=== PATIENT | female | born 1990 | race Caucasian/White ===

== ENCOUNTER 2019-02-23 00:55 | Inpatient (IN) | payer OTHER ==
[2019-02-23] MEDS ORDERED: ELECTROLYTE-148 SOLN 500 ML IV ONE (01:40)
[2019-02-23 02:20] LABS: BASO % 0.5 % (0-2.0); EOS % 0.2 % (0-4.5); HEMATOCRIT 37.5 % (32.4-45.2); HEMOGLOBIN 12.4 GM/dL (10.7-15.3); LYMPH % 7.3 % (8-40); MCH 29.3 pg (25.7-33.7); MCHC 33.1 g/dl (32.0-36.0); MEAN CELL VOLUME 88.4 fl (80-96); MEAN PLT VOLUME 9.2 fl (7.5-11.1); MONO % 6.8 % (3.8-10.2); NEUT % 85.2 % (42.8-82.8); PLATELET COUNT 168 K/MM3 (134-434); RBC 4.24 M/mm3 (3.60-5.2); RDW 14.9 % (11.6-15.6); WHITE BLOOD COUNT 11.3 K/mm3 (4.0-10.0)
[2019-02-23] MEDS ORDERED: AMPICILLIN - 2 GM in SODIUM CHLORIDE 100 ML IVPB ONE (02:30)
[2019-02-23] MEDS ORDERED: AMPICILLIN SODIUM 2 GM VIAL ONE (02:35)
[2019-02-23 02:39] LABS: INR 0.92 (0.83-1.09); PROTHROMBIN TIME (PATIENT) 10.8 SEC (9.7-13.0)
[2019-02-23 02:42] LABS: ACTIVATED PTT 25.9 SECONDS (25.2-36.5)
[2019-02-23 02:53] LABS: BLOOD UREA NITROGEN 12.4 mg/dL (7-18); CALCIUM 8.5 mg/dL (8.5-10.1); CREATININE 0.6 mg/dL (0.55-1.3); POTASSIUM 4.3 mmol/L (3.5-5.1)
[2019-02-23 04:04] VITALS: BMI 33.6
[2019-02-23] MEDS ORDERED: BUTORPHANOL TARTRATE 1 MG/ML VIAL ONE ×4 (04:23→15:59)
[2019-02-23] MEDS ORDERED: PROMETHAZINE HCL 25 MG/1 ML VIAL ONE ×2 (04:23→15:59)
[2019-02-23] MEDS: ELECTROLYTE-148 SOLN 1,000 ML IV SCH ×2 (04:30→20:30)
[2019-02-23] MEDS: AMPICILLIN - 1 GM in SODIUM CHLORIDE 100 ML IVPB SCH ×5 (06:00→23:53)
[2019-02-23] MEDS ORDERED: PROMETHAZINE HCL 25 MG/1 ML VIAL IVPB ONE ×2 (06:00→16:00)
[2019-02-23] MEDS ORDERED: BUTORPHANOL TARTRATE 1 MG/ML VIAL IVPB ONE ×2 (06:00→16:00)
[2019-02-23] MEDS ORDERED: AMPICILLIN SODIUM 1 GM VIAL ONE ×6 (06:11→17:33)
--- NOTE | 2019-02-23 06:36 | HP ---
Past Medical History - Primary Care Physician PCP:: Dedra Ramirez - Admission Chief Complaint: labor History Source: Patient Limitations to Obtaining History: No Limitations - Past Medical History ...: 2 ...Para: 1 ...Term: 1 ...: 0 ...Spon : 0 ...Induced : 0 ...Multiple Gestation: 0 ...LMP: 05/27/18 ... Weeks Gestation by Dates: 39.2 ...EDC by Dates: 02/28/19 ...EDC by Sono: 03/02/19 - Past Surgical History Past Surgical History: Yes: None Hx Myomectomy: No Hx Transabdominal Cerclage: No - Smoking History Smoking history: Never smoked Have you smoked in the past 12 months: No - Alcohol/Substance Use Hx Alcohol Use: No History of Substance Use: reports: None - Social History Usual Living Arrangement: Yes: With Spouse History of Recent Travel: No Home Medications - Allergies Allergies/Adverse Reactions: Allergies Allergy/AdvReac Type Severity Reaction Status Date / Time No Known Allergies Allergy Verified 11/13/14 08:33 - Home Medications Home Medications: Ambulatory Orders Vit/Iron Fumarate/FA [ Tablet] 1 each PO DAILY 11/12/14 Review of Systems - Review of Systems Constitutional: reports: No Symptoms Eyes: reports: No Symptoms HENT: reports: No Symptoms Neck: reports: No Symptoms Cardiovascular: reports: No Symptoms Respiratory: reports: No Symptoms Gastrointestinal: reports: No Symptoms Genitourinary: reports: No Symptoms Breasts: reports: No Symptoms Reported Musculoskeletal: reports: No Symptoms Integumentary: reports: No Symptoms Neurological: reports: No Symptoms Endocrine: reports: No Symptoms Hematology/Lymphatic: reports: No Symptoms Psychiatric: reports: No Symptoms Physical Exam - Maternity Vital Signs: Vital Signs Temperature 98.1 F 02/23/19 05:00 Pulse Rate 105 H 02/23/19 05:00 Respiratory Rate 20 02/23/19 05:00 Blood Pressure 106/61 02/23/19 05:00 O2 Sat by Pulse Oximetry (%) Constitutional: Yes: Well Nourished, No Distress Cardiovascular: Yes: WNL Lungs: Clear to auscultation Breast(s): Yes: WNL - Abdominal Exam/OB Fundal Height: 39 Number of Fetuses: Single Presentation: Vertex Monitor Mode: External Category: I - Vaginal Exam/OB Dilatation (cm): 2 Effacement (%): 50 Amniotic Membrane Status: Intact Presentation: Vertex/Position Station: -3 - Physical Exam Musculoskeletal: Yes: WNL Extremities: Yes: WNL Edema: No Psychiatric: Yes: WNL, Alert, Oriented - Labs Lab Results: CBC, BMP 02/23/19 02:10 02/23/19 02:10 Problem List - Problems (1) 39 weeks gestation of Problems reviewed: Yes Code(s): Z3A.39 - 39 WEEKS GESTATION OF (2) First stage of labor established Problems reviewed: Yes Code(s): AWW9894 - Assessment/Plan IUP at 39 week Prodromal labor Cat 1 Head high will continue labor Plan continue present management
--- NOTE | 2019-02-23 19:21 | PN ---
Ante-Partal Exam - Subjective Subjective: Pt with pressure urge to push Vital Signs: Vital Signs Temperature 98.0 F 02/23/19 18:15 Pulse Rate 97 H 02/23/19 19:00 Respiratory Rate 20 02/23/19 19:00 Blood Pressure 105/60 02/23/19 19:00 O2 Sat by Pulse Oximetry (%) Bleeding: No Headache: No Visual changes: No Right upper quadrant pain: No - Contractions Contractions: Yes Regularity: Regular Intensity: Mild/Mod Monitor Mode: External - Exam during Labor Variability: Moderate Category: I Monitor Accelerations: Present Monitor Decelerations: None Exam: Vaginal Dilatation (cm): 5-6 cm Effacement (%): 90 Amniotic Membrane Status: Ruptured Station: -1 - Intrapartum Hemorrhage Risk High Risk Factors: None Risk Score: 0 Risk Level: Low Risk - Assessment/Plan Assessment/Plan: Cat 1 Active labor arom - clear GBS Plan continue present management
[2019-02-23] MEDS ORDERED: FENTANYL/BUPIVACAINE/NS/PF - PCEA - 50 ML DISP.SYRIN EP ONE (19:51)
[2019-02-23] MEDS ORDERED: LIDO 2%/EPI 1:200000 PRESRVFRE (20 ML SDVIAL) ONE (19:53)
[2019-02-23] MEDS ORDERED: NALOXONE HCL 0.4 MG/ML VIAL IVPUSH PRN (20:14)
[2019-02-23] MEDS ORDERED: FENTANYL/BUPIVACAINE/NS/PF - PCEA - 50 ML DISP.SYRIN EP SCH (20:15)
[2019-02-23] MEDS ORDERED: LIDOCAINE HCL 1% PRESERVATIVE FREE - 30ML VIAL ONE (20:38)
[2019-02-23] MEDS ORDERED: OXYTOCIN 20 UNITS in 0.9% NS 20 UNIT/1,000 ML INFUS.BAG IV ONE (20:38)
[2019-02-23] MEDS ORDERED: OXYTOCIN 30 UNITS in 0.9% NS 30 UNIT/500 ML INFUS.BAG IVPB ONE (20:38)
[2019-02-23] MEDS ORDERED: OXYTOCIN 30 UNITS in 0.9% NS 30 UNIT/500 ML INFUS.BAG IVPB SCH (21:15)
--- NOTE | 2019-02-23 22:35 | PN ---
Delivery - Delivery Vaginal Delivery: No Problems, Spontaneous Episiotomy/Laceration: 1st degree (repaired with 2 0 chromic) EBL (cc): 250 Delivery, Single - Stages of Labor Placenta: Yes: Spontaneous - Condition of Infant Infant Gender: Female Position: OA - Streeter Feeding Plan Initial Plan: Elected not to breastfeed exclusively throughout hospitalization
[2019-02-23] MEDS ORDERED: OXYTOCIN 20 UNITS in 0.9% NS 20 UNIT/1,000 ML INFUS.BAG IV SCH (22:45)
[2019-02-24] MEDS ORDERED: SODIUM CHLORIDE 100 ML IVPB ONE (03:07)
[2019-02-24] MEDS ORDERED: AMPICILLIN SODIUM 1 GM VIAL ONE (03:07)
[2019-02-24] MEDS: AMPICILLIN - 1 GM in SODIUM CHLORIDE 100 ML IVPB SCH (03:14)
[2019-02-24] MEDS ORDERED: SENNOSIDES/DOCUSATE COMBO (SENNA PLUS) TABLET (UD) PO PRN (03:52)
[2019-02-24] MEDS ORDERED: BENZOCAINE 28 GM HEMORRHOIDAL OINTMENT TP PRN (03:53)
[2019-02-24] MEDS ORDERED: BISACODYL 10 MG SUPP.RECT RC PRN (03:53)
[2019-02-24] MEDS ORDERED: WITCH HAZEL 50% (TUCKS) 40 PAD/JAR PAD TP PRN (03:53)
[2019-02-24] MEDS ORDERED: METHYLERGONOVINE MALEATE 0.2 MG/1 ML AMP IM PRN (03:54)
[2019-02-24] MEDS: BENZOCAINE 20% 57 GM BOTTLE TP PRN (05:18)
[2019-02-24] MEDS: IBUPROFEN 600 MG TABLET (FP) PO PRN ×4 (06:22→23:22)
[2019-02-24] MEDS: ACETAMINOPHEN 325 MG TABLET (FP) PO PRN ×4 (06:23→23:22)
[2019-02-24] MEDS ORDERED: DIPHTH,PERTUSS(ACELL),TET 0.5 ML DISP.SYRIN IM ONE (10:00)
[2019-02-24 22:41] VITALS: TEMP 97.9
--- NOTE | 2019-02-24 23:04 | PN ---
Post Note - Post Date of Delivery: 02/23/19 Post Day: 1 Vital Signs: Vital Signs - 24 hr 02/24/19 02/24/19 02/24/19 00:52 03:24 06:00 Temperature 98.0 F 98.9 F 98.8 F Pulse Rate 86 98 H 100 H Respiratory 20 18 20 Rate Blood Pressure 122/67 114/61 113/83 02/24/19 02/24/19 02/24/19 09:00 14:00 18:00 Temperature 97.9 F 97.9 F 97.8 F Pulse Rate 90 100 H 99 H Respiratory 18 18 18 Rate Blood Pressure 100/63 134/75 119/82 02/24/19 22:00 Temperature 97.9 F Pulse Rate 99 H Respiratory 18 Rate Blood Pressure 138/97 - Subjective Subjective: No Complaints - Objective Afebrile: Yes Breast: Not engorged Abdomen: Soft, Non-tender Uterus: Fundus firm Vagina: Scant lochia Extremities: Non-tender - Assessment/Plan (1) 39 weeks gestation of Assessment: S/P Normal Plan: Routine Care
[2019-02-24] MEDS ORDERED: OXYTOCIN 30 UNITS in 0.9% NS 30 UNIT/500 ML INFUS.BAG IVPB SCH (23:15)
--- NOTE | 2019-02-25 05:43 | DS ---
Physical Exam-MARKETING STRATEGIST Vital Signs: Vital Signs Temperature 97.9 F 02/24/19 22:00 Pulse Rate 99 H 02/24/19 22:00 Respiratory Rate 18 02/24/19 22:00 Blood Pressure 138/97 02/24/19 22:00 O2 Sat by Pulse Oximetry (%) 100 02/23/19 23:00 Constitutional: Yes: Well Nourished, No Distress Gastrointestinal: Yes: WNL ....Post : Yes: Uterus firm, Uterus non-tender Neurological: Yes: WNL, Alert, Oriented Labs: CBC, BMP 02/23/19 02:10 02/23/19 02:10 Delivery - Delivery Vaginal Delivery: No Problems, Spontaneous Type of Anesthesia: Epidural Episiotomy/Laceration: Vaginal Extension/lac, 1st degree EBL (cc): 250 Delivery, Single - Stages of Labor Date 1st Stage Initiatied: 02/23/19 Time 1st Stage Initiated: 02:00 Date 2nd Stage Initiated: 02/23/19 Time 2nd Stage Initiated: 21:25 Date of Delivery: 02/23/19 Time of Delivery: 22:04 Time Placenta Delivered: 22:10 Placenta: Yes: Spontaneous - 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 You may walk unlimited janes of and climb stairs. You may resume driving the car when you feel safe and comfortable behind the wheel. No sexual activity as instructed. Wound care If you have a bandage, leave it on, and keep dry for 48-72 hours. After that time discard the outer bandage. If they are tapes on the skin under the out of bandage leave them in place. They will peel off in the next 7 to 10 days. Do Not Peel them off. You may shower the day after surgery. If there are tapes present on the skin, you may shower over them. Diet There are no dietary restrictions. Eat healthy, high-fiber foods. Drink 6 to 8 glasses of liquid each day. This will assist in keeping your bowels are regular. Pain management You may take Tylenol or acetaminophen or Ibuprofen (for example, Motrin, Advil etc.) from my pain prescription medication is ordered should be taken as prescribed for moderate to severe pain. Call MD for any of the following: Severe pain not relieved by medication Fever of 101 or higher Excessive bleeding or drainage on dressing Inability to urinate Disposition: HOME - Home Medications Comprehensive Discharge Medication List: Ambulatory Orders Vit/Iron Fumarate/FA [ Tablet] 1 each PO DAILY 11/12/14 Ibuprofen [Motrin -] 600 mg PO QID #28 tablet 02/23/19
[2019-02-25] MEDS: BENZOCAINE 20% 57 GM BOTTLE TP PRN (09:05)
[2019-02-25] MEDS: IBUPROFEN 600 MG TABLET (FP) PO PRN (09:16)
[2019-02-25] MEDS: ACETAMINOPHEN 325 MG TABLET (FP) PO PRN (09:16)
[2019-02-25 10:41] VITALS: BP 114/73; PULSE 75
[2019-02-25] MEDS ORDERED: oxyCODONE HCL 5 MG TABLET PO PRN (11:19)
[2019-02-25 12:41] LABS: BASO % 0.8 % (0-2.0); EOS % 0.5 % (0-4.5); HEMATOCRIT 35.2 % (32.4-45.2); HEMOGLOBIN 11.4 GM/dL (10.7-15.3); LYMPH % 15.4 % (8-40); MCHC 32.5 g/dl (32.0-36.0); MEAN CELL VOLUME 89.3 fl (80-96); MEAN PLT VOLUME 8.6 fl (7.5-11.1); MONO % 3.9 % (3.8-10.2); NEUT % 79.4 % (42.8-82.8); PLATELET COUNT 193 K/MM3 (134-434); RBC 3.95 M/mm3 (3.60-5.2); RDW 15.2 % (11.6-15.6); WHITE BLOOD COUNT 11.2 K/mm3 (4.0-10.0)
== END 2019-02-25 14:20 | disposition home or self-care (01) | DRG 560 ==
LOC: JDEL 00:55 → JLDR 01:40 → J3W 02-24 00:15
PROVIDERS: ADMIT Obstetrics & Gynecology; ATTEND Obstetrics & Gynecology
PROC: 10E0XZZ Delivery of Products of Conception, External Approach (ICD-10-PCS; principal; 2019-02-23)
PROC: 0HQ9XZZ Repair Perineum Skin, External Approach (ICD-10-PCS; 2019-02-23)
PROC: 0W8NXZZ Division of Female Perineum, External Approach (ICD-10-PCS; 2019-02-23)
DX: O70.0 First degree perineal laceration during delivery (principal); Z3A.39 39 weeks gestation of pregnancy; Z37.0 Single live birth
CPT/HCPCS: 36415; 36600; 59409; 80048; 82803; 85025; 85610; 85730; 86593; 86850; 86900; 86901; 87389; 90715